=== PATIENT | female | born 1935 | race Caucasian/White ===

== ENCOUNTER → 2016-06-20 | Outpatient (CLI) | payer OTHER | LOC: BRMIMAGING 08:00 | DX: Z12.31 Encounter for screening mammogram for malignant neoplasm of breast (principal); Z80.3 Family history of malignant neoplasm of breast | CPT/HCPCS: G0202 ==

== ENCOUNTER → 2017-06-21 | Outpatient (CLI) | payer OTHER | LOC: BRMIMAGING 15:03 | PROVIDERS: ATTEND Family Medicine | DX: Z12.31 Encounter for screening mammogram for malignant neoplasm of breast (principal) ==

== ENCOUNTER → 2018-06-22 | Outpatient (CLI) | payer OTHER | LOC: BRMIMAGING 08:08 | PROVIDERS: ATTEND Family Medicine | DX: Z12.31 Encounter for screening mammogram for malignant neoplasm of breast (principal); Z80.3 Family history of malignant neoplasm of breast ==